=== PATIENT | female | born 1925 | race Caucasian/White ===

== ENCOUNTER 2017-01-08 13:27 | Inpatient (IN) | payer MEDICARE, OTHER ==
[~2017-01-08] VITALS: Ht 170.2 cm; Wt 61.6 kg
--- NOTE | ~2017-01-08 | ER ---
PATIENT'S NAME: JAMES MELGAR [facility] AGE: 89 Y [address] ROOM: [place] [address] LOCATION: [facility] [place] ADMIT DATE: 01/08/2017 ER/Outpatient Report DISCHARGE DATE: FAMILY PHYSICIAN: Rebecca Nassar MD ATTENDING PHYSICIAN: Joshua Pedersen Admission date and time documented on the medical record. I saw the patient at 1340 hours. CHIEF COMPLAINT: Altered mental status. HISTORY OF PRESENT ILLNESS: This patient is an 89-year-old female, who was here in the emergency room about three to four hours ago after being found in her room on the floor. It appeared that she had sat on the edge of bed and slipped off onto the floor. She had blankets around her. She was awake, alert, and responsive. She was brought to the emergency room for evaluation because of the fall. I did a chest x-ray that showed no acute infiltrate or changes along with a pelvis x- ray that showed no fracture or dislocation. She also had a CBC and a CMS that were normal. I did discharge the patient from the emergency department and sent her back to [facility]. She got back there and ended up urinating in her closet. They felt that she needed higher level of care other than assisted living that she need to go to the usp facility but they did not have a bed, so they sent her back to the emergency department here at [facility] by ambulance. Here in the emergency department, I did a CT scan of the head and neck, which showed no acute brain bleed, midline shift, mass effect, or skull fracture. Her cervical spine showed degenerative changes but no acute fracture or subluxation. Urinalysis was clear. HOME MEDICATIONS: See attached medication list. ALLERGIES: BACTRIM, CEPHALEXIN. SOCIAL HISTORY: Nonsmoker and nondrinker. SIGNIFICANT PAST MEDICAL HISTORY: Atherosclerotic ischemic heart disease with coronary artery disease, syncope, degenerative joint disease, degenerative osteoarthritis, colon cancer, sick sinus syndrome, bradycardia, hypertension. OPERATIONS: PATIENT'S NAME: JAMES MELGAR [facility] AGE: 89 Y [address] ROOM: [place] [address] LOCATION: [facility] [place]MIT DATE: 01/08/2017 ER/Outpatient Report DISCHARGE DATE: FAMILY PHYSICIAN: Rebecca Nassar MD ATTENDING PHYSICIAN: Joshua Pedersen Colonoscopy, colon resection, cholecystectomy, bilateral total hip arthroplasty, bilateral total knee arthroplasty, pacemaker placement. REVIEW OF SYSTEMS: All systems reviewed by me are negative with exception of those discussed in the history of present illness. PHYSICAL EXAMINATION: VITAL SIGNS: Temperature 97.4 tympanic, pulse 60 regular, respirations 16, blood pressure 116/57, O2 saturation on room air is 97%. HEAD: Normocephalic. No abrasion, contusion, laceration, swelling of the scalp or face. EYES: Extraocular muscles intact. PERRL. EARS, NOSE, THROAT: Clear. Mucous membranes moist. Teeth and jaw intact. NECK: No nuchal rigidity. No thyromegaly or cervical adenopathy. No tenderness. Full range of motion. SPINE: Nontender. No deformity. LUNGS: Clear. No rales, rhonchi, or wheezes. HEART: Regular. Pulses are palpable. ABDOMEN: Flat, soft, nondistended, nontender. Good bowel tones. No organomegaly or abnormal mass palpable. EXTREMITIES: Moves all 4 extremities. No peripheral edema, cyanosis, or deformity. NEUROVASCULAR: Intact. The patient does have some dementia, is disoriented as far as time and place. SKIN: Clear. No skin eruptions or rash. DIAGNOSTIC DATA: As stated earlier, CT scan of the head and cervical spine were obtained as well as urinalysis. I did note further blood studies. IMPRESSION: 1. Altered mental status. 2. Fall. 3. History of atherosclerotic ischemic heart disease with coronary artery disease, sick sinus syndrome, bradycardia with pacemaker placement. 4. History of colon cancer status post colon resection. 5. Hypertension. 6. Degenerative joint disease with degenerative osteoarthritis. 7. Total bilateral hip and knees. PLAN: I did discuss the patient with Dr. Pedersen, hospitalist. We will admit the patient to med/surg. IV was started. Normal saline 75 mL an hour. The patient will need placement in usp facility. Family is on their way PATIENT'S NAME: JAMES MELGAR [facility] AGE: 89 Y [address] ROOM: [place] [address] LOCATION: [facility] [place] ADMIT DATE: 01/08/2017 ER/Outpatient Report DISCHARGE DATE: FAMILY PHYSICIAN: Rebecca Nassar MD ATTENDING PHYSICIAN: Joshua Pedersen and is probably about 4-6 hours away from [place], [place]. MD SINDY CALLAWAY/modl /[id number] d: 01/08/172001 t: 01/09/17 0610, OUTPATIENT REPORT
--- NOTE | ~2017-01-08 | CON ---
PATIENT'S NAME: JAMES MELGAR [facility] AGE: 89 Y [address] ROOM: [place] [address] [address]ATION: [facility] [place] ADMIT DATE: 01/08/2017 Consultation DISCHARGE DATE: FAMILY PHYSICIAN: Rebecca Nassar MD ATTENDING PHYSICIAN: Joshua Pedersen DATE OF CONSULTATION: 01/10/2017 REFERRING PHYSICIAN: Joshua Pedersen MD REASON FOR CONSULTATION: Left lower extremity dermatitis. HISTORY OF PRESENT ILLNESS: This is a pleasant 89-year-old female patient who was admitted to [facility] with acute encephalopathy. She has a significant history of dementia, coronary artery disease, syncope, hypertension, colon cancer, bradycardia, and edema. The patient currently resides at [facility]. Prior to admission, she sustained a fall. She was taken to the emergency room for further evaluation. The patient was sent back to [place], however, when she got back she was found to be urinating in her closet. She was subsequently admitted to [facility] for further evaluation. CT of head and neck is stable. Cervical spine showed degenerative changes. Urinalysis was negative. No fractures noted. The patient is unable to recall the events. She thinks she was lying for significant amount of time. Surprisingly, she is denying pain. She has lower leg dermatitis, unsure how long she has had it. She does apply Eucerin cream to her left lower extremity. She also admits to wearing compression stockings at [place]. She is denying chest pain or shortness of breath. She reports a fair oral intake. She is pleasant, but slightly forgetful. PAST MEDICAL HISTORY: 1. Atherosclerotic ischemic heart disease with coronary artery disease. 2. Sick sinus syndrome. 3. Bradycardia. 4. Syncope. 5. Essential hypertension. 6. History of colon cancer. 7. Osteoarthritis. 8. Lower leg edema. PAST SURGICAL HISTORY: 1. Cholecystectomy. 2. Bilateral hip and knee replacements. PATIENT'S NAME: JAMES MELGAR [facility] AGE: 89 Y [address] ROOM: [place] [address] [address]ATION: [facility] [place] ADMIT DATE: 01/08/2017 Consultation DISCHARGE DATE: FAMILY PHYSICIAN: Rebecca Nassar MD ATTENDING PHYSICIAN: Joshua Pedersen FAMILY HISTORY: Per previous records, patient's mother suffered from a stroke. SOCIAL HISTORY: The patient lives at [place]. She denies tobacco or alcohol use. ALLERGIES: SULFA, CEPHALEXIN, AND BACTRIM. CURRENT MEDICATIONS: Please refer to medication administration record. REVIEW OF SYSTEMS: All are negative except as mentioned above in the HPI. PHYSICAL EXAMINATION: VITAL SIGNS: Temperature 97.5, pulse 65, respirations 13, blood pressure 184/85, and pulse oximetry 96% on room air. Height 5 feet 7 inches and weight 61.6 kg. GENERAL: The patient is alert and oriented to self and place. Unsure of the time. Pleasant. In no acute distress. HEENT: Head; normocephalic and atraumatic. Oral mucosa intact. NEUROLOGIC: Grossly nonfocal. EXTREMITIES: +2 pedal pulses. No edema. Bulging varicosities, left worse than the right. Medial malleolar area has hemosiderin staining. SKIN: Breasts and groin folds intact. Red abrasion noted to left lumbar back, tender to touch. Right upper buttock scattered purple ecchymosis. Gluteal crease ulcer measures 0.3 cm width x 1.0 cm length x 0.1 cm depth. Wound bed is moist pink. Periwound intact. Scant serous exudate. Left sacrum is dark purple with surrounding yellow discoloration. No induration, fluctuance, or tenderness noted. Lower leg medial dermatitis, scales were gently removed with a washcloth. No open ulcers noted. Heels intact. Blanchable redness to great toes. LABORATORY DATA: White blood cell count 4.1, hemoglobin 12.2, hematocrit 38.1, and platelets 104,000. Sodium 144, potassium 3.4, chloride 109, bicarbonate 26, BUN 13, creatinine 0.5, glucose 88, and albumin 3.0. ASSESSMENT AND PLAN: Again, this is a pleasant 89-year-old female patient who was admitted to [facility] with acute encephalopathy post fall. 1. Lower leg dermatitis with hemosiderin staining. Most likely secondary to venous insufficiency, however no history documented. No active venous PATIENT'S NAME: JAMES MELGAR [facility] AGE: 89 Y [address] ROOM: [place] [address] LOCATION: [facility] [place] ADMIT DATE: 01/08/2017 Consultation DISCHARGE DATE: FAMILY PHYSICIAN: Rebecca Nassar MD ATTENDING PHYSICIAN: Joshua Pedersen ulcers noted. No pruritus or pain complaints. We will use emollient therapy with [place] moisture barrier, apply b.i.d. to lower legs. Discussed the importance of elevation. The patient is to transition back to her gradient stockings on dismissal. 2. Gluteal crease dermal ulcer. Most likely secondary to incontinence that she suffered during her fall. Instructed nursing to apply [place] moisture barrier cream to site t.i.d. and p.r.n. incontinence. Pressure redistribution measures were discussed. Nursing is to turn patient in bed q.2 hours side to side. 3. Left sacrum ecchymosis secondary to blunt trauma from fall. Due to location and discoloration, cannot rule out a deep tissue injury. However at this time, ecchymosis appears more probable. No induration or fluctuance noted. Area is not hot to touch. Pressure redistribution measures will be initiated. We will continue to follow. I would like to thank Dr. Pedersen for this consultation. AMPARO GARRETT APRN FOR MD JEN GALVAN/joshl /[id number] d: 01/10/17 1454 t: 01/17/17 1200, CONSULTATION REPORT
--- NOTE | ~2017-01-08 | DS ---
PATIENT'S NAME: JAMES MELGAR [facility] AGE: 89 Y [address] ROOM: [id number] [place] [id number] [place] [facility] [place]: 01/08/2017 Discharge Summary DISCHARGE DATE: 01/11/2017 FAMILY PHYSICIAN: Rebecca Nassar MD ATTENDING PHYSICIAN: Joshua Pedersen PRIMARY DIAGNOSES: 1. Acute encephalopathy. 2. Ataxia. CHRONIC DIAGNOSES: Include coronary artery disease, essential hypertension, venous insufficiency, sick sinus syndrome, history of colon cancer, Thrombocytopenia. Platelet count upon discharge was 104. Hypokalemia, potassium 4.0 stable. Upon discharge, it was 4.0, creatinine was 0.6, stable throughout the hospital stay. Microbiology: None was indicated. PROCEDURE: None was indicated on this patient. LABORATORY DATA: On admission, cardiac enzymes x3 sets, less than 0.040. WBC was stable throughout the hospital stay. Upon discharge, it was 4.1, H and H upon discharge was 12.2 with 38.1. It was stable throughout the hospital stay. RADIOLOGY: Chest x-ray, no acute process. X-ray of the pelvis, intact bilateral hip replacement with no evidence of fracture or dislocation. CT head without contrast, periventricular small vessel ischemic change with no evidence of acute intracranial injury. CT cervical, multilevel degenerative changes with no displaced fracture or dislocation. CT of the head with contrast, periventricular small vessel ischemic change with no evidence of acute ischemia. CT of lumbar, no evidence of acute fracture, mild T12 compression fracture, chronic in appearance. Signs of osteoporosis, central canal stenosis at L2-L3, L3-L4, and L4-L5. Echocardiogram is reported as EF of 55% to 60%, diastolic grade 1 dysfunction. HOSPITAL COURSE: For history of present illness, please take a look at the H and P which was done by Dr. Pdeersen. The patient was admitted to medical- surgical unit, and was observed, and her acute encephalopathy improved with her hospital stay. She did also get a Cardiology consult given the history of syncope, however, after the patient was evaluated by Cardiology with an echocardiogram which essentially was within a normal limit except for the diastolic dysfunction. Cardiology decided to sign off as there was nothing acute or active for them to do. By the second day of the hospital stay, the patient had returned to her baseline mental status, and we started discussion PATIENT'S NAME: JAMES MELGAR [facility] AGE: 89 Y [address] ROOM: [id number] [place] [address] [place] [facility] [place]: 01/08/2017 Discharge Summary DISCHARGE DATE: 01/11/2017 FAMILY PHYSICIAN: Rebecca Nassar MD ATTENDING PHYSICIAN: Joshua Pedersen with the son as the patient was no longer a good candidate to return to an assisted living facility and that she would be an appropriate candidate for [facility]. So the process was begun by the home care scheduler team and on the day of discharge, the patient was accepted at [facility] and she was discharged to [facility]. Vital signs were stable upon discharge. MEDICATIONS ON DISCHARGE: Includes Norvasc 2.5 mg p.o. daily, ampicillin 250 mg p.o. at bedtime, vitamin C 500 mg p.o. daily, aspirin 81 mg p.o. daily, Lipitor 80 mg p.o. daily, hydrochlorothiazide 12.5 mg p.o. daily, lisinopril 10 mg p.o. daily, multivitamin one tablet p.o. daily, Tylenol 650 mg p.o. q.6 hours p.r.n., clindamycin 600 mg p.o. x1 p.r.n. for dental procedure, calcium carbonate with vitamin D 1 tablet p.o. daily. MD SUNNY RODRIGUES/lissa /[id number] d: 01/12/17 0111 t: 01/27/17 1641, DISCHARGE SUMMARY
--- NOTE | ~2017-01-08 | HP ---
PATIENT'S NAME: JAMES MELGAR [facility] AGE: 89 Y [address] ROOM: [address] [place], [place] [address] LOCATION: [facility] [place] ADMIT DATE: 01/08/2017 History & Physical DISCHARGE DATE: FAMILY PHYSICIAN: Rebecca Nassar MD ATTENDING PHYSICIAN: Joshua Pedersen DATE OF SERVICE: CHIEF COMPLAINT: Acute encephalopathy. HISTORY OF PRESENTING ILLNESS: This 89-year-old white female with previous history of mild dementia, ischemic heart disease, and essential hypertension, who was brought to [facility] Emergency Department twice today after being found down in her room. Apparently, she had a fall yesterday. She cannot relate any specific inciting factors and cannot remember why she fell. There was no apparent injury. Today, she was found down in her room, poorly responsive by assisted living staff. They brought her to the emergency department for definitive evaluation and management. After a thorough evaluation, no significant abnormalities were found. She was felt to be essentially at her baseline and released to go home. Later today, she was found in her room, in the closet, where she had an episode of urinary incontinence. She was brought back to the emergency department once again for definitive evaluation and consideration for placement. On my evaluation, she indicates that she "does not know why she is here." She states she "feels okay." She denies headache pain. She denies dizziness. No neck pain. No chest pain, shortness of breath, or abdominal pain. She thinks that she last ate breakfast, but cannot remember what she had. She has not noticed any problems with chewing or swallowing. She cannot remember the last time she stooled or voided. She denies noticing any urinary complaints. No numbness or tingling in her extremities or any other associated physical or constitutional concerns. ALLERGIES: SULFA, CEPHALEXIN, AND TRIMETHOPRIM. ILLNESSES: 1. Dementia, vascular type, without agitation. 2. Sick sinus syndrome status post pacemaker implant. 3. Coronary artery disease. 4. Ischemic cardiomyopathy. 5. Essential hypertension. PATIENT'S NAME: JAMES MELGAR [facility] AGE: 89 Y [address] ROOM: [address] [place], [place] [address] LOCATION: [facility] [place] ADMIT DATE: 01/08/2017 History & Physical DISCHARGE DATE: FAMILY PHYSICIAN: Rebecca Nassar MD ATTENDING PHYSICIAN: Joshua Pedersen 6. Osteoarthritis, generalized. CURRENT MEDICATIONS: 1. Acetaminophen 650 mg p.o. q.6 hours p.r.n. 2. Amlodipine 2.5 mg p.o. daily. 3. Amoxicillin 250 mg p.o. q.h.s. 4. Vitamin C 500 mg p.o. daily. 5. Aspirin 81 mg p.o. daily. 6. Atorvastatin 80 mg p.o. daily. 7. Calcium with vitamin D 600 mg one tablet p.o. daily. 8. Clindamycin cap 600 mg p.o. prior to dental appointments. 9. Hydrochlorothiazide 12.5 mg p.o. daily. 10. Lisinopril 10 mg p.o. daily. 11. Multivitamin daily. FAMILY HISTORY: Significant for stroke in her mother, who at the age of 87. Father in his 90s. She had a sister with pancreatic cancer. SOCIAL HISTORY: She is and lives at [place]. She is a lifelong nonsmoker. There is no significant history of alcohol use. REVIEW OF SYSTEMS: As per HPI. All other organ systems reviewed and are negative. OBJECTIVE: VITAL SIGNS: Temperature 97.4, pulse 60, respirations 16, blood pressure 116/57, and O2 saturation 97% on room air. GENERAL: She is very pleasant, cooperative, lying in the bed, in no acute distress. She is oriented x1 only. SKIN: Supple, pink, warm, and dry. No obvious rashes. HEENT: Otherwise, normocephalic. Sclerae nonicteric. Pupils equal, round, and reactive to light and accommodation. Extraocular movements appear intact. Nasal turbinates normal in appearance. Oropharynx clear. Mucous membranes are pink and moist. NECK: Supple. No masses or adenopathy. No thyromegaly. No JVD. No carotid bruits are heard. CHEST: Chest wall is symmetrical. HEART: Regular with grade 1 to 2/6 systolic ejection murmur. LUNGS: Diminished at the bases. No crackles or wheezes are heard. ABDOMEN: Soft. Nontender. Bowel sounds present. No masses or hepatosplenomegaly. AND RECTAL: Not done. EXTREMITIES: Display trace pitting edema. No cyanosis. There is a scaly PATIENT'S NAME: JAMES MELGAR [facility] AGE: 89 Y [address] ROOM: [id number] [place] [address] LOCATION: [facility] [place] ADMIT DATE: 01/08/2017 History & Physical DISCHARGE DATE: FAMILY PHYSICIAN: Rebecca Nassar MD ATTENDING PHYSICIAN: Joshua Pedersen rash over the left medial leg consistent with a nonspecific dermatitis. There is no ulceration or bleeding noted. NEUROLOGIC: Cranial nerves II through XII appear grossly intact. Sensation appears normal. Strength is 4/5 bilaterally in upper and lower extremities. DTRs are 0 to 1+ and roughly symmetrical. Gait is not observed. LABORATORY AND X-RAY DATA: CT scan of the head shows senescent changes, no acute intracranial abnormalities. CT scan of the C-spine is negative for fracture, but does demonstrate degenerative changes. X-ray of the pelvis is negative for any fracture. Chest x-ray does not show any acute cardiopulmonary abnormalities. CBC showed a white blood cell count of 5.8, hemoglobin of 13.2, hematocrit of 41.3, and platelets of 119. Chemistries reveal a BUN and creatinine of 16 and 0.6 respectively, sodium and potassium of 144 and 3.5, chloride and CO2 are 107 and 30, glucose was 104, AST and ALT 55 and 44 respectively, and bilirubin is 0.9. Urinalysis was unremarkable. ASSESSMENT AND PLAN: 1. Acute encephalopathy, etiology unknown, differential diagnosis remains relatively broad. She has had an extensive workup to this point, which was unyielding. Consider cerebrovascular accident, although she does not have any focalizing signs. Unfortunately, we were unable to get MRI because of her pacemaker device. We will admit and follow serially. Continue with aspirin and statin therapy and follow serially. I suspect she has had progression of her underlying dementia and it was suggested that she may not be able to return to the assisted living facility because of her poor functional status. We will place her on observation, provide some supportive cares and restorative cares and clinical monitoring. We will request Care Management to look at placement options for her. 2. Urinary incontinence. It is unclear if this was an episode of functional incontinence or some other event. There was not an actual witnessed fall and seizure seems unlikely. There is no evidence for urinary tract infection. We will provide some clinical monitoring restorative cares as above and additional evaluation if necessary. 3. Coronary artery disease, clinically stable and otherwise asymptomatic. We will trend her cardiac enzymes. 4. Essential hypertension, adequately controlled. Continue her home medication regimen and monitor the trend. We will make adjustments as necessary. 5. Osteoarthritis, generalized. Symptomatic measures. No nonsteroidal antiinflammatory drugs. 6. Hyperlipidemia. Plan to continue the statin therapy. 7. Deep venous thrombosis prophylaxis. We will use low-dose Lovenox while she is inpatient. PATIENT'S NAME: JAMES MELGAR [facility] AGE: 89 Y [address] ROOM: [place] [address] LOCATION: [facility] [place] ADMIT DATE: 01/08/2017 History & Physical DISCHARGE DATE: FAMILY PHYSICIAN: Rebecca Nassar MD ATTENDING PHYSICIAN: Joshua Pedersen MD ANTONIO HIGGINS/joshl /[id number] D: 211 T: 650 HISTORY & PHYSICAL
--- NOTE | ~2017-01-08 | CON ---
PATIENT'S NAME: JAMES MELGAR [facility] AGE: 89 Y [address] [place] [facility] [place] [address] LOCATION: [facility] [place] ADMIT DATE: 01/08/2017 Consultation DISCHARGE DATE: FAMILY PHYSICIAN: Rebecca Nassar MD ATTENDING PHYSICIAN: Joshua Pedersen DATE OF CONSULTATION: 01/10/2017 REASON FOR CARDIOLOGY CONSULT: Coronary artery disease with a history of stenting. HISTORY OF PRESENT ILLNESS: This is an 89-year-old female familiar to [facility]. She was last seen by Dr. Allan in October of 2016. She has a previous history of coronary artery disease with a stent placement to her mid LAD as well as a stent placement to her distal RCA in 2014. She also has a [employer] dual-chamber permanent pacemaker also placed in 2014. She has no complaints of shortness of breath, angina, palpitations, nausea, or vomiting. She does present to the hospital with complaints of confusion as well as two separate falls over the weekend. Due to the fall, she does have complaints of hip and buttocks pain, but x-ray of her pelvis is without fracture. She is currently resting comfortably in her bed and is unsure of any recent details related to her previous admission when questioned why she is in the hospital. Her son is present at the bedside and does assist with question and answer. From chart review, the patient has had some increasing confusion at her assisted living facility to the point that she did urinate in her closet and once again did have 2 separate falls and was evaluated in the emergency department after each. PAST MEDICAL HISTORY: 1. Coronary artery disease. 2. Sinus bradycardia with syncope. 3. Hypertension. 4. Dementia. 5. Osteoarthritis. SURGICAL HISTORY: 1. Coronary artery stenting to her mid LAD and distal RCA in January of 2015. 2. Dual-chamber [employer] permanent pacemaker implantation in January of 2015 for sinus bradycardia with syncope. 3. Cholecystectomy. 4. Right and left total knee replacement. 5. Bilateral hip replacement. FAMILY HISTORY: PATIENT'S NAME: JAMES MELGAR [facility] AGE: 89 Y [address] ROOM: [place] [address] LOCATION: [facility] [place] ADMIT DATE: 01/08/2017 Consultation DISCHARGE DATE: FAMILY PHYSICIAN: Rebecca Nassar MD ATTENDING PHYSICIAN: Joshua Pedersen The patient's mother had a history of stroke. She does have a brother with a history of bradycardia and subsequent pacemaker. SOCIAL HISTORY: The patient denies ever using tobacco. She also denies alcohol or illicit drug use. CURRENT MEDICATIONS: 1. Aspirin 81 mg p.o. daily. 2. Hydrochlorothiazide 12.5 mg p.o. daily. 3. Lipitor 80 mg p.o. daily. 4. Norvasc 2.5 mg p.o. daily. 5. Os-Amadeo plus D 500 mg p.o. daily. 6. Principen 250 mg p.o. daily in the evening. 7. Prinivil 10 mg p.o. daily. 8. Multivitamin 1 tablet p.o. daily. 9. Vitamin C 500 mg p.o. daily. 10. Lovenox 40 mg subcutaneously daily. MEDICATION ALLERGIES: 1. Sulfa causing hives. 2. Cephalexin causing hives. 3. Bactrim causing hives. REVIEW OF SYSTEMS: Pertinent positive review of systems listed in the HPI. All other review of systems evaluated and negative. DIAGNOSTICS: CMS evaluation shows a sodium of 144, potassium 3.4, BUN of 13, creatinine 0.5, and a glucose of 88. Cardiac enzyme trend shows a CPK of 595, then 473, then 374; CK-MB of 12.5, then 7.8, then 5.7; and troponin I of less than 0.04 x3 values. PHYSICAL EXAMINATION: VITAL SIGNS: Temperature 97.6, pulse 61, respirations 14, blood pressure 133/89, O2 saturation 97% on room air. The patient weighs 61.6 kilograms. SKIN: Armour, warm, and dry. EYES: Sclerae clear. No xanthelasmas. ENT: Oral mucosa is pink and moist. No jugular venous distention. No carotid bruits. CHEST: Respirations are even and unlabored. Lung sounds are clear to bilateral upper lobes. They are diminished to bilateral lower lobes. HEART: Irregularly irregular rate and rhythm. Normal S1, S2. No murmurs, rubs, or gallops. PATIENT'S NAME: JAMES MELGAR [facility] AGE: 89 Y [address] ROOM: [place] [address] LOCATION: [facility] [place] ADMIT DATE: 01/08/2017 Consultation DISCHARGE DATE: FAMILY PHYSICIAN: Rebecca Nassar MD ATTENDING PHYSICIAN: Joshua Pedersen ABDOMEN: Soft and nontender. MUSCULOSKELETAL: Equal muscle strength to upper and lower extremities bilaterally against resistance. EXTREMITIES: Peripheral pulses palpable. No clubbing or cyanosis noted. Does have trace lower extremity edema present as well as stasis dermatitis and varicose veins. NEUROLOGIC: Disoriented to time. PSYCH: Mood and affect are appropriate. IMPRESSION AND PLAN: Per Dr. Allan. 1. Coronary artery disease with a history of stenting. She has no complaints of angina, and cardiac enzymes are currently negative for acute changes of ischemia. We will check an EKG to fully evaluate ST changes. We will also continue her aspirin and statin. 2. Acute encephalopathy, currently under the care of the hospitalist for a workup. No current signs of infection, and her head CT was without any acute changes. 3. Essential hypertension which is well controlled with Norvasc and her JONO inhibitor. We will get an echocardiogram to fully evaluate ejection fraction as well as look for wall motion and valvular abnormalities. We will continue to monitor, evaluate, and treat as appropriate. Thank you for this consult. Thank you for allowing [facility] to interact in the care of this patient. SANTO RUEDA APRN FOR MD DENNISE DENNIS/lissa /[id number] d: 01/11/17 0251 t: 01/14/17 0839, CONSULTATION REPORT
--- NOTE | ~2017-01-08 | ECHO ---
Transthoracic Echocardiography Report (TTE) Demographics Patient Name JAMES MELGAR Date of Study 01/10/2017 Patient Number [id number] Visit Number [id number] Date of 1925 Room Number G3219 Accession Number [id number] Gender Female Age 89 year(s) Referring Arturo Barrow Trucking Supervisor Adilene Reed [facility] Physician Physician Interpreting Sanjana Baeza Supervisor Photostat Physician A MD Supervising Ordering Physician MD/SHERIN Nurse Stress Supervisor [employer] Conclusions Summary Technically difficult exam. The estimated left ventricular ejection fraction is 55-60%. Diastolic assessment reveals Grade I diastolic dysfunction. Mild-moderate mitral regurgitation by color Doppler. Mild tricuspid regurgitation by color Doppler. There is mild pulmonary hypertension. The pulmonary pressure (RVSP) is 39 mmHg. Procedure Type of Study TTE procedure:2D Echocardiogram. Procedure Date Date: 01/10/2017 Start: 04:55 PM Study Location: Inpatient Portable Technical Quality: Fair Indications:Acute coronary syndrome. Appropriate Use Criteria: 9 Patient Status: Routine HR: 62 bpm BP: 135/82 mmHg Allergies - Sulfa. - Cephalosporines. - Other:(sulfamethozole, trimethoprim, cephalexin). M-Mode/2D Measurements LV Diastolic Dimension: 4.02 cm LV Systolic Dimension: 2.83 cm LV Septum Diastolic: 1.03 cm LV PW Diastolic: 1.18 cm AO Root Dimension: 1.8 cm Cardiac Output: 4.2 l/min LA Dimension: 2.9 cm EF Estimated: 55 % LVOT: 1.9 cm LVOT VTI: 23.9 cm LV Stroke volume: 67.73 ml Doppler Measurements AV Peak Velocity: 1.63 m/s MV Peak E-Wave: 0.95 m/s AV Peak Gradient: 10.63 mmHg MV Peak A-Wave: 1.18 m/s AV Mean Gradient: 6 mmHg MV E/A Ratio: 0.81 LVOT Peak Velocity: 1.17 m/s MV P1/2t: 52 msec TR Gradient:29.81 mmHg PV Peak Velocity: 0.85 m/s Estimated RAP:10 mmHg PV Peak Gradient: 2.9 mmHg Estimated RVSP: 40 mmHg Estimated PASP: 39.81 mmHg E' Septal Velocity: 0.06 m/s A' Septal Velocity: 0.09 m/s E' Lateral Velocity: 0.09 m/s A' Lateral Velocity: 0.11 m/s Findings Left Ventricle Diastolic assessment reveals Grade I diastolic dysfunction. Right Ventricle Normal right ventricle structure and function. Left Atrium Normal left atrial size. Right Atrium Normal right atrial size. Mitral Valve Mild-moderate mitral regurgitation by color Doppler. Moderate mitral annular calcification. Aortic Valve The aortic valve is moderately sclerotic. Tricuspid Valve Mild tricuspid regurgitation by color Doppler. There is mild pulmonary hypertension. The pulmonary pressure (RVSP) is 39 mmHg. Pulmonic Valve Normal pulmonic valve structure and function. Pericardial Effusion No evidence of pericardial effusion. Pleural Effusion No evidence of pleural effusion. Signature dtt: La Nena Allan dtd: 01/10/17 7208 Physician Self Edit
[~2017-01-08 13:27] MED LIST changes: -CIPRO250 MG PO; -CLEOCIN150 MG PO; -DULCOLAX10 MG R; -PRINCIPEN 250250 MG PO; -TYLENOL325 MG PO
[2017-01-08 14:01] LABS: BILIRUBIN URINE NEGATIVE (NEGATIVE); BLOOD URINE NEGATIVE /UL (NEGATIVE); COLOR URINE YELLOW (YELLOW); GLUCOSE URINE NEGATIVE (NEGATIVE); KETONE URINE 5 mg/dL (NEGATIVE); LEUKOCYTES URINE NEGATIVE /UL (NEGATIVE); NITRITE URINE NEGATIVE (NEGATIVE); PROTEIN URINE NEGATIVE (NEGATIVE); TURBIDITY URINE CLEAR (CLEAR); UROBILINOGEN URINE NORMAL (NORMAL)
[2017-01-08] MEDS ORDERED: PRINCIPEN 250250 MG PO (15:51)
[2017-01-08] MEDS ORDERED: TYLENOL325 MG PO (15:52)
[2017-01-08] MEDS ORDERED: CLEOCIN150 MG PO (15:55)
--- NOTE | 2017-01-08 17:54 | NUR ---
Patient is an 89 year old female who was admitted for altered mental status. She is a resident at [facility]. She was found on the floor laying next to her bed this morning where she was believed to be there all night. She was brought in by the ambulance and had a complete workup. She was then sent back to [place] due to no complications. She was then found in her closet where she fell and had urinated and was confused. Does have some dementia. Is oriented to self only, not place and time. Has trouble expressing her thoughts sometime. Skin issues present, noted. Hx of chronic UTI's, colon cancer?, dementia, SSS, and has a PACER. Ultra high fall risk. Bed alarm on at all times. Needs a WOC consult, order in. IV to the R)AC, fluids infusing for 1 liter. Cooperative with the admission. Son is traveling from [facility] to see his mother. Will be here around 1930
[2017-01-08 19:02] LABS: CPK 595 IU/L (21-215)
[2017-01-09 00:39] LABS: CPK 473 IU/L (21-215)
--- NOTE | 2017-01-09 04:05 | NUR ---
Shift Summary: Patient disoriented to Month/year. Has disorganized speech. Midsentence she says unrelated things and appears to have trouble finding her words. She has a flat affect. Is a two assist to transfer to [facility]. Tends to lean back. She has not been impulsive. Poor appetite for supper. Takes her pills whole one at a time. Complained to pain to her right leg. It does rotate in. Has butt crease open skin area. Brusies to back and across sacral area. Multiple scattered bruises to arms/legs. Her son came in last night from [place]. Patient from an assisted living facility. Will need placement in a [facility]. Son is here to help with that. Gave Tylenol at 2135 for leg pain.
[2017-01-09 06:14] LABS: BASOPHIL % 0.5 %; EOSINOPHIL # 0.1 K/uL (0.0-0.5); EOSINOPHIL % 2.7 %; HEMATOCRIT 38.1 % (30.0-46.0); HEMOGLOBIN 12.2 g/dL (10.0-15.0); IMMATURE GRANULOCYTE % 0.2 %; LYMPHOCYTE # 0.9 K/uL (0.8-4.0); LYMPHOCYTE % 22.4 %; MCH 28.2 pg (27.0-34.0); MCV 88.2 fl (83.0-98.0); MONOCYTE # 0.4 K/uL (0.0-1.0); MONOCYTE % 8.8 %; MPV 10.8 fl (9.4-12.4); NEUTROPHIL # (ANC) 2.7 K/uL (1.8-7.8); NEUTROPHIL % 65.4 %; NRBC % 0 /100WBC (0-0.00); PLATELET COUNT 104 K/uL (150-450); RBC 4.32 M/uL (3.00-5.00); RDW-CV 15.1 % (11.9-14.6); WBC 4.1 K/uL (4.0-11.0)
[2017-01-09 06:32] LABS: CPK 374 IU/L (21-215)
[2017-01-09 06:33] LABS: ANION GAP 12.4 (10.0-19.0); BLOOD UREA NITROGEN 13 mg/dL (6-24); CALCIUM 8.5 mg/dL (8.5-10.5); CHLORIDE 109 mMol/L (96-110); CO2 26 mMol/L (22-32); CREATININE 0.5 mg/dL (0.5-1.1); ESTIMATED GFR (MDRD EQUATION) > 60; PHOSPHORUS 2.5 mg/dL (2.5-4.9); POTASSIUM 3.4 mMol/L (3.7-5.1); SODIUM 144 mMol/L (135-145)
--- NOTE | 2017-01-09 15:46 | NUR ---
Significant event: Ambulated with 2 assist to BR. Up in chair today. Denies pain today. Speech is slow but appropriate. Was confused to place this am and time. This afternoon knew where she was. Had company today. Cooperative with cares.
--- NOTE | 2017-01-10 03:13 | NUR ---
Shift Summary: Patient can ambulate with 1 assist/walker. Does need verbal cues such as reminder to stand up straight, when to move hands from bed/chair to walker and visa versa. Patient tends to lean to the left. Is oriented to all but . Thinks it is February. C/O pain to sacral area. Has large bruise and lisa swollen area to sacrum. Is tolerating regular diet well. Voiding without difficulty. Takes her pills whole, one at a time.
--- NOTE | 2017-01-10 10:30 | NUR ---
Introduced self to patients son Leno, patient sleeping. We discussed patients observation status and what that meant for SNF placement. He voiced understanding that patient will be self pay at SNF. First choice [facility] as she was there in the past. 2nd choice is [facility]. 1110 Left a message on [facility] admission phone about referral. 1130 Stephanie called back, faxed referral. 1325 Sunshine from [facility] called and they will accept. Pickup time 1130. Discharge plans communicated to Zakiya Santamaria, Dr Tsai, charge nurse Sarah and patient/son. Packet started and ID screen placed inside. Orders on the chart.
[2017-01-10 13:37] LABS: BLOOD UREA NITROGEN 15 mg/dL (6-24); CHLORIDE 110 mMol/L (96-110); CO2 26 mMol/L (22-32); CREATININE 0.6 mg/dL (0.5-1.1); ESTIMATED GFR (MDRD EQUATION) > 60; MAGNESIUM 2.2 mg/dL (1.8-2.6); SODIUM 144 mMol/L (135-145)
--- NOTE | 2017-01-10 18:43 | NUR ---
Significant Event: Alert, oriented to person and place. Makes confused statements. Bowel sounds hypoactive. 400 urine + 2 incont vds. Off floor to ECHO and CT scan. VSS, afebrile, room air. Son present at bedside. Pleasant & cooperative with cares. Follow up: LUCY Tuesday to [facility] at 1145 ?
--- NOTE | 2017-01-11 03:43 | NUR ---
Shift Summary: Patient dioriented to month. Had hard time with remembering the year and place. Has flat affect and disorganized speech. Needs verbal cues with ambulating. Is a 1-2 assist/walker. Is continent most of the time. Wears a brief. Has scaley dry skin patches to bilateral inner lower legs. Bruises to arms and back. Plans to go to [facility] today at 1130.
--- NOTE | 2017-01-11 09:40 | NUR ---
Faxed orders to [facility]. 1100 spoke to patients nurse Khadra and patient ready to go just needs line pulled. Gave her nurse to nurse phone number. Checked it charge nurse, finishing up packet but thought 1130 would still work. Called [facility] and spoke to nurse Angel. Their van is very busy but was planning to be at the hospital around 1130.
--- NOTE | 2017-01-11 10:47 | NUR ---
Significant Event: Pt denies pain. disoriented at times, cooperative with cares. Bed alarm on for safety. 1-2 assist with ambulation. takes pills whole in applesauce. VS stable. Family at bedside. To dc to long term at 1130. Follow up:
== END 2017-01-11 12:20 | DRG 71 ==
LOC: GACC 13:27 → GMSU 14:39
PROVIDERS: Emergency Medicine; Hospitalist; ADMIT Family Medicine
DX: G93.40 Encephalopathy, unspecified (principal); I50.32 Chronic diastolic (congestive) heart failure; D69.6 Thrombocytopenia, unspecified; I10 Essential (primary) hypertension; R32 Unspecified urinary incontinence; I25.10 Atherosclerotic heart disease of native coronary artery without angina pectoris; M15.9 Polyosteoarthritis, unspecified; E78.5 Hyperlipidemia, unspecified; R55 Syncope and collapse; Z85.038 Personal history of other malignant neoplasm of large intestine; Z96.653 Presence of artificial knee joint, bilateral; Z96.643 Presence of artificial hip joint, bilateral; R27.0 Ataxia, unspecified; I87.2 Venous insufficiency (chronic) (peripheral); M81.0 Age-related osteoporosis without current pathological fracture; S30.0XXA Contusion of lower back and pelvis, initial encounter; W18.30XA Fall on same level, unspecified, initial encounter
CPT/HCPCS: J1650; J7030

== ENCOUNTER → 2017-01-08 | Outpatient (CLI) | payer MEDICARE, OTHER ==
[~2017-01-08] MED LIST: ASCORBIC ACID500 MG PO; ASPIR 8181 MG PO; CALCIUM600 MG PO; CIPRO250 MG PO; CIPRO500 MG PO; CLEOCIN150 MG PO; DULCOLAX10 MG R; FISH OIL1000 MG PO; HYDROCHLOROTH12.5 MG PO; LIPITOR80 MG PO; MILK OF MA400 MG/5 M PO; MOBIC7.5 MG; MULTIVITAMINS1 EAC1 PO; NITROSTAT0.4 MG SL; NORCO 5-325 MG1 TAB PO; NORVASC2.5 MG PO; PLAVIX75 MG PO; PRINCIPEN 250250 MG PO; PRINIVIL OR ZES10 MG PO; TRIMETHOPRIM100 MG PO; TYLENOL325 MG PO; VITAMIN D1000 UNI1 PO
== END | disposition disaster alternative care site (69) ==
LOC: GAMB 08:30
DX: R53.1 Weakness (principal); R41.0 Disorientation, unspecified; R29.6 Repeated falls; W01.0XXA Fall on same level from slipping, tripping and stumbling without subsequent striking against object, initial encounter
CPT/HCPCS: A0425; A0429

== ENCOUNTER → 2017-01-08 | Outpatient (CLI) | payer MEDICARE, OTHER | END | disposition disaster alternative care site (69) | LOC: GAMB 12:30 | DX: R53.1 Weakness (principal); M54.9 Dorsalgia, unspecified | CPT/HCPCS: A0425; A0429 ==

== ENCOUNTER 2017-03-02 05:43 | Emergency (ER) | payer MEDICARE, OTHER ==
--- NOTE | ~2017-03-02 | ER ---
PATIENT'S NAME: JAMES MELGAR [facility] AGE: 89 Y [address] ROOM: [place] [address] LOCATION: [facility] ADMIT DATE: 03/02/2017 ER/Outpatient Report DISCHARGE DATE: 03/02/2017 FAMILY PHYSICIAN: Rebecca Nassar MD ATTENDING PHYSICIAN: Kwan Kaur Time of arrival: 0543 hours. Time of Evaluation: 0543 hours. CHIEF COMPLAINT: Fall. HISTORY OF PRESENT ILLNESS: The patient is an 89-year-old female who presents to the emergency department today after a fall. It occurred about 30-40 minutes prior to arrival. The patient was apparently walking to get coffee. The patient does have a history of dementia in the past. She complains of hip pain. She denies any fevers or chills. No nausea or vomiting. No diarrhea or constipation. She reports she does not really hurt anywhere at the present time. The patient does have some blood noted in the back of her head. PAST MEDICAL HISTORY: Colon cancer, dementia, heart disease, hypertension, and osteoarthritis. PAST SURGICAL HISTORY: Pacemaker. SOCIAL HISTORY: The patient denies any tobacco, alcohol, or illicit drug use. ALLERGIES: KEFLEX AND BACTRIM. MEDICATIONS: Please see list. PRIMARY CARE DOCTOR: Dr. Nassar. REVIEW OF SYSTEMS: All systems are reviewed by myself, are negative with the exception of those discussed in HPI and past medical history. PHYSICAL EXAMINATION: VITAL SIGNS: Weight 62.9 kg. Blood pressure 144/65, pulse 78, respiratory PATIENT'S NAME: JAMES MELGAR [facility] AGE: 89 Y [address] ROOM: [place] [address] LOCATION: [facility] ADMIT DATE: 03/02/2017 ER/Outpatient Report DISCHARGE DATE: 03/02/2017 FAMILY PHYSICIAN: Rebecca Nassar MD ATTENDING PHYSICIAN: Kwan Kaur rate 16, temperature 97.2, oxygen saturation 97% on room air. GENERAL: The patient is an 89-year-old female, appears stated age, in no acute distress at this time. HEENT: Normocephalic, does have evidence of abrasion to the left posterior aspect of her scalp. Pupils are equal, round, and reactive to light and accommodation. Extraocular motions are intact. Nares are patent bilaterally. TMs are clear. Oropharynx is clear. NECK: Supple. No nuchal rigidity. No step-offs or deformities. CARDIOVASCULAR: Regular rate and rhythm. LUNGS: Clear to auscultation bilaterally. No wheezes, rales, or rhonchi. ABDOMEN: Soft, nontender, and nondistended. No rebound, rigidity, or guarding. MUSCULOSKELETAL: The patient does hold her right leg in internal rotation; however, she is able to do range of motion without pain. SKIN: Warm and dry. No other rashes or lesions noted except for the abrasion noted on the posterior aspect of her scalp. LABORATORY DATA AND X-RAYS: CT scan of the brain is obtained. It is read by Radiology as well as C-spine shows no acute fracture. CBC is unremarkable. CMP is unremarkable. Prealbumin is normal. Coags are normal. X-ray of the right hip and pelvis are obtained, is interpreted by myself, there is no evidence of fracture or dislocation. IMPRESSION: 1. Mechanical fall. 2. Dementia. 3. Initial visit. EMERGENCY DEPARTMENT COURSE: The patient was brought back to the examination room. Seen and evaluated by myself. IV was established. Laboratory analysis and imaging are obtained as described above. The patient is given 25 mcg of fentanyl IV. X-rays are obtained. I reviewed those x-rays. I see no evidence of fracture or dislocation. The patient has ambulated. She does have a shuffling gait which after discussion with the [facility] is normal for her. She is able to bear weight. The rest of the workup is obtained and is unremarkable. The patient denies any pain at this time. I do feel she is safe to return back to [facility]. I have discussed results with the patient. She is agreeable with plan without further questions at this time. DISPOSITION: The patient is discharged back to [facility] in stable condition. PATIENT'S NAME: JAMES MELGAR [facility] AGE: 89 Y [address] ROOM: [place], [place] [address] LOCATION: [facility] ADMIT DATE: 03/02/2017 ER/Outpatient Report DISCHARGE DATE: 03/02/2017 FAMILY PHYSICIAN: Rebecca Nassar MD ATTENDING PHYSICIAN: Kwan Kaur DO NORMA LANG/lissa /[id number] d: 03/02/17 1254 t: 03/03/17 1428, OUTPATIENT REPORT
[~2017-03-02 05:43] MED LIST changes: -CIPRO250 MG PO; -DULCOLAX10 MG R
[2017-03-02 06:08] LABS: HEMATOCRIT 36.9 % (30.0-46.0); HEMOGLOBIN 11.8 g/dL (10.0-15.0); MCH 28.4 pg (27.0-34.0); MCV 88.7 fl (83.0-98.0); MPV 9.4 fl (9.4-12.4); RBC 4.16 M/uL (3.00-5.00); RDW-CV 15.6 % (11.9-14.6); WBC 6.2 K/uL (4.0-11.0)
[2017-03-02 06:10] LABS: PLATELET COUNT 139 K/uL (150-450)
[2017-03-02 06:22] LABS: INR - (THERAPEUTIC) 1.08 (0.92-1.07); PROTIME 11.3 SECONDS (9.8-11.4); PTT 25 SECONDS (25-32)
[2017-03-02 06:29] LABS: ALBUMIN 3.6 gm/dL (3.5-5.0); ANION GAP 10.4 (10.0-19.0); CALCIUM 9.1 mg/dL (8.5-10.5); CREATININE 0.9 mg/dL (0.5-1.1); PHOSPHORUS 2.9 mg/dL (2.5-4.9); POTASSIUM 3.4 mMol/L (3.7-5.1)
[2017-03-02 06:36] LABS: ABSOLUTE NEUTROPHIL CT (ANC) 5.5 K/uL (1.8-7.8); BANDED NEUTROPHIL # 0.8 K/uL (0.0-0.1); BANDED NEUTROPHILS % 13 %; LYMPHOCYTE # 0.4 K/uL (0.8-4.0); LYMPHOCYTE % 6 %; MONOCYTE # 0.3 K/uL (0.0-1.0); SEGMENTED NEUTROPHIL # 4.7 K/uL (1.8-7.8); SEGMENTED NEUTROPHIL % 76 %
== END 2017-03-02 08:53 | disposition disaster alternative care site (69) ==
LOC: GACC 05:43
PROVIDERS: Emergency Medicine
DX: S00.01XA Abrasion of scalp, initial encounter (principal); F03.90 Unspecified dementia, unspecified severity, without behavioral disturbance, psychotic disturbance, mood disturbance, and anxiety; C18.9 Malignant neoplasm of colon, unspecified; I11.9 Hypertensive heart disease without heart failure; M19.90 Unspecified osteoarthritis, unspecified site; Z88.1 Allergy status to other antibiotic agents; Z79.82 Long term (current) use of aspirin; Z79.2 Long term (current) use of antibiotics; Z66 Do not resuscitate; Z96.89 Presence of other specified functional implants; W18.30XA Fall on same level, unspecified, initial encounter
CPT/HCPCS: J3010

== ENCOUNTER → 2017-03-02 | Outpatient (CLI) | payer MEDICARE, OTHER ==
[~2017-03-02] MED LIST changes: +CIPRO250 MG PO; +CLEOCIN150 MG PO; +DULCOLAX10 MG R; +PRINCIPEN 250250 MG PO; +TYLENOL325 MG PO
== END | disposition disaster alternative care site (69) ==
LOC: GAMB 05:15
DX: S79.911A Unspecified injury of right hip, initial encounter (principal); M25.551 Pain in right hip; S01.81XA Laceration without foreign body of other part of head, initial encounter; R51 Headache; R53.1 Weakness; W19.XXXA Unspecified fall, initial encounter
CPT/HCPCS: A0425; A0429

== ENCOUNTER 2017-03-04 09:11 | Inpatient (IN) | payer MEDICARE, OTHER ==
[~2017-03-04] VITALS: Ht 170.2 cm; Wt 61.5 kg
--- NOTE | ~2017-03-04 | ER ---
PATIENT'S NAME: JAMES MELGAR [facility] AGE: 89 Y [address] ROOM: [address] [place], [place] [address] LOCATION: [facility] [place] ADMIT DATE: 03/04/2017 ER/Outpatient Report DISCHARGE DATE: FAMILY PHYSICIAN: Rebecca Nassar MD ATTENDING PHYSICIAN: USMAN BROCK Time of Arrival: 0910 hours. Time of Evaluation: 0910 hours. CHIEF COMPLAINT: Fall. HISTORY OF PRESENT ILLNESS: The patient is an 89-year-old female, who presents to the emergency department today with a chief complaint of fall. The patient was seen and evaluated by myself earlier this week after a fall and right hip pain. She has the same symptoms, apparently, staff at the assisted living went and checked on her, gave her medicines; and then about 20 minutes later went back, she was on the ground, was not able to get up. We have talked with a friend, who went to a doctor's appointment with Dr. Nassar yesterday, she does report that she has progressively gotten weaker and having difficulties with ambulation. The patient does verbally state that she feels more weak than normal. She does have dementia. The patient denies any current pain at this time. Denies any fevers or chills. No nausea or vomiting. No diarrhea or constipation. No chest pain. No shortness of breath. The patient cannot tell me about the fall. PAST MEDICAL HISTORY: Colon cancer, dementia, heart disease, hypertension, and osteoarthritis. PAST SURGICAL HISTORY: Pacemaker. SOCIAL HISTORY: The patient denies any tobacco, alcohol, or illicit drug use. ALLERGIES: KEFLEX AND BACTRIM. MEDICATIONS: Please see list. PRIMARY CARE DOCTOR: Rebecca Nassar M.D. PATIENT'S NAME: JAMES MELGAR [facility] AGE: 89 Y [address] ROOM: [address] [place], [place] [address] LOCATION: [facility] [place] ADMIT DATE: 03/04/2017 ER/Outpatient Report DISCHARGE DATE: FAMILY PHYSICIAN: Rebecca Nassar MD ATTENDING PHYSICIAN: USMAN BROCK REVIEW OF SYSTEMS: All systems are reviewed by myself and are negative with the exception of those discussed in the HPI and past medical history. PHYSICAL EXAMINATION: VITAL SIGNS: Weight 62.7 kg, blood pressure 130/62, pulse 71, respiratory rate 20, temperature 95.3, and oxygen saturation 100% on room air. GENERAL: The patient is an 89-year-old female, appears as stated age. She is pleasantly demented. Oriented to person and place. HEENT: Head normocephalic and atraumatic. Pupils are equal, round, and reactive to light. Extraocular muscles are intact. Nares are patent bilaterally. TMs are clear. Oropharynx is clear. NECK: Supple. There is no nuchal rigidity. CARDIOVASCULAR: Regular rate and rhythm. No murmurs, rubs, or gallops. LUNGS: Clear to auscultation bilaterally. No wheezes, rales, or rhonchi. ABDOMEN: Soft. Nontender. Nondistended. No rebound, rigidity, or guarding. MUSCULOSKELETAL: The patient moves all 4 extremities. She does rotate internally the right hip. SKIN: Warm and dry. LABORATORY DATA AND X-RAYS: EKG was obtained, interpreted by myself at 0939 hours, shows sinus rhythm with a rate of 68, normal axis, NE interval 251, otherwise normal interval. No ST elevation, ST depression, or T-wave inversions. CBC is unremarkable except for a platelet of 148. Coags are normal. CMP is unremarkable except for potassium of 3.3. Prealbumin is 18. Urinalysis shows 25 leukocyte esterase, 15 protein and ketones, 10 blood, otherwise negative. CT scan of the brain is obtained, I have discussed results with the radiologist, shows no acute process. Chest x-ray shows no acute process. Hip x-ray and pelvis are negative for acute fractures. IMPRESSION: 1. Generalized weakness. 2. Immobility. 3. Dementia. 4. Initial visit. EMERGENCY DEPARTMENT COURSE: The patient was brought back to the examination room. Seen and evaluated by myself. IV was established. Laboratory analysis and imaging are obtained as described above. The patient was given 25 mcg of fentanyl IV. Urinalysis obtained. CT imaging obtained. The results are essentially unremarkable. We have attempted to get the patient up and ambulate. She does require 2 person assist to even stand up. She is requiring assistance to ambulate. She is able to weight bear on the hip and pelvis. She does report she feels very PATIENT'S NAME: JAMES MELGAR [facility] AGE: 89 Y [address] ROOM: [address] [address] LOCATION: [facility] [place] ADMIT DATE: 03/04/2017 ER/Outpatient Report DISCHARGE DATE: FAMILY PHYSICIAN: Rebecca Nassar MD ATTENDING PHYSICIAN: USMAN BROCK. She certainly is much weaker than when I saw her 4 days ago. With her inability to appropriately take care of herself, I do not feel she is safe to return to Assisted Living. She will likely need some strengthening or even possible further advanced group home type care. I have discussed this with the patient. We have contacted the patient's friend, who does help assist her to her doctor's appointments. I have contacted Dr. Nassar and discussed the case with her. I have contacted Dr. Brock and discussed the case with the hospitalist. She does agree to accept the patient for further evaluation, treatment, and management. DISPOSITION: The patient was admitted under the care of the Hospitalist Service and Dr. Brock in stable condition. DO NORMA LANG/modl /[id number] d: 03/04/172212 t: 03/06/17 0708, OUTPATIENT REPORT
--- NOTE | ~2017-03-04 | HP ---
PATIENT'S NAME: ROSANA HASSAN [facility] AGE: 89 Y [address] ROOM: [address] [place], [place] [address] LOCATION: [facility] ADMIT DATE: 03/04/2017 History & Physical DISCHARGE DATE: FAMILY PHYSICIAN: Rebecca Nassar MD ATTENDING PHYSICIAN: USMAN BARDALES DATE OF SERVICE: 03/04/2017 CHIEF COMPLAINT: Recurrent fall. HISTORY OF PRESENT ILLNESS: Ms. Rosana Hassan is an 89-year-old female who resides at the [facility] and no close family is nearby. She presented to the emergency room on 03/02/2017, status post a fall. I have been able to reach Flakita Nicole who is a friend and has been helping to care for her and help her give her medicines over the past couple of years. She reports that the patient has been declining progressively since 2015. She was hospitalized here at [facility] in early January 2016 with acute encephalopathy and found to have no remarkable findings. After she left here, Flakita says that she went to rehab at [facility], but then was able to return to assisted living at [facility]. However, Flakita reports that she has had progressive deterioration in the past few weeks. I was called earlier by the emergency room physician who said that he had seen her in the ER on the after a fall. She was seen by her PCP yesterday with some changes made to her medications. Today, she again fell and was evaluated in the emergency room. There were no acute fractures on imaging of both hips, where she has prosthesis. A CT of the head was nonrevealing for any acute changes. She does have significant aging changes and atrophy. Dr. Kaur was unable to send her home because when he stood her up, she was unable to ambulate, this may be generalized weakness, may be problems she appears to have had prosthesis in both knees as well. She is admitted for further monitoring, observation, and consideration of admission to intermediate. I have called the son's number twice and her brother Abhinav's number twice and left a message with one of them and Flakita says she will try to get the son to call me back. At this point, she is admitted to the Med/Surg Unit. PAST MEDICAL HISTORY: 1. Dementia, vascular, without agitation. 2. Sick sinus syndrome, status post pacemaker implant. PATIENT'S NAME: ROSANA HASSAN [facility] AGE: 89 Y [address] ROOM: [address] [address] LOCATION: [facility] ADMIT DATE: 03/04/2017 History & Physical DISCHARGE DATE: FAMILY PHYSICIAN: Rebecca Nassar MD ATTENDING PHYSICIAN: USMAN BARDALES 3. Coronary artery disease. 4. Ischemic cardiomyopathy. 5. Essential hypertension. 6. Osteoarthritis. 7. Recurrent UTIs on daily prophylaxis with ampicillin 250 mg daily. PAST SURGICAL HISTORY: 1. Bilateral hip replacements. 2. Pacemaker placement. 3. Bilateral knee surgeries. ALLERGIES: SULFA, CEPHALEXIN, AND TRIMETHOPRIM. MEDICATIONS: 1. Ampicillin 250 mg p.o. q.h.s. 2. Aspirin 81 mg p.o. daily. 3. Calcium carbonate 1 daily. 4. Norvasc 2.5 mg p.o. daily was discontinued yesterday. 5. Vitamin C 1 daily. 6. Cipro 250 mg was started 02/28/2017 b.i.d. for 5 days. 7. Dulcolax p.r.n. SOCIAL HISTORY: She is and has been living in [place] for 14 years, lifelong nonsmoker and no alcohol intake at this time. FAMILY HISTORY: Stroke in her mother who at age 87, father in his 90s, and her sister had pancreatic cancer. REVIEW OF SYSTEMS: Impossible because she is confused, she does know where she is, she really cannot carry on a conversation. PHYSICAL EXAMINATION: VITAL SIGNS: Temperature 98.6, pulse 71, respirations 20, oxygen saturation when she arrived in the emergency room on room air was 100%. Her blood pressure is 108/56. GENERAL: This is a petite elderly female in no acute distress. She is awake and alert. She is not oriented beyond knowing that she is in [place], she could not tell me the name of the city, she did not understand she was in the hospital, but she is pleasant. HEENT: Normocephalic, atraumatic. Her pupils are equal and round and reactive to light. The sclerae are anicteric. Palpebral conjunctivae are PATIENT'S NAME: HASSAN, ROSANA M [facility] AGE: 89 Y [address] ROOM: [place] [address] LOCATION: [facility] ADMIT DATE: 03/04/2017 History & Physical DISCHARGE DATE: FAMILY PHYSICIAN: Rebecca Nassar MD ATTENDING PHYSICIAN: USMAN BARDALES pink without exudate. Oropharynx is slightly dry. She does have her natural teeth, which is in relatively good repair. NECK: Supple without lymphadenopathy. She does have some temporal wasting. LUNGS: Clear to auscultation bilaterally. CARDIOVASCULAR: Regular rate and rhythm without murmur, rub, or gallop. ABDOMEN: Flat, soft, nontender, nondistended. EXTREMITIES: No cyanosis, clubbing, or edema. She does follow directions and grasp with her hands, but she does not move her legs. There is no lower extremity edema. Unable to test gait as above she was unable to stand or even take a step in the ER. LABORATORY DATA: White blood cell count 5.4, hemoglobin 11.9, hematocrit 37.6, and platelets 148. Sodium 144, potassium 3.3, chloride 108, CO2 28, BUN 23, creatinine 0.7, glucose 110, calcium 9.0, phosphorus 2.8, and albumin 3.6. Urinalysis showed a specific gravity 1.020, pH 5, some leukocyte esterase, however, 0-2 white blood cells, no bacteria. Her prealbumin is slightly below normal at 18. RADIOGRAPHIC STUDIES: CT of the head showed [id number]-lbrlzy cerebral atrophy. She has bilateral hip prosthesis normally in place. A chest x-ray was also normal. EKG shows MN interval at 251. ASSESSMENT AND PLAN: 1. Elderly female with vascular dementia, which seems to be progressing, she is unable to ambulate today, she is awake and alert, but not able to tell me where she is or carry on a meaningful conversation. I think that this just means a progression of her underlying dementia and I do not see any acute signs of infection; however, we will send her urine for culture, which I do not think will yield much since she has been on Cipro, we will obtain blood cultures, and monitor her. 2. Coronary artery disease, this appears to be stable, she on statin and we will continue that with aspirin. 3. Essential hypertension, her Norvasc has been discontinued, her blood pressure is low normal, and we will monitor that closely. 4. Deep vein prophylaxis with sequential compression devices. 5. Disposition. She may need to be admitted to the intermediate. Since I started this dictation, I have been able to reach her son who called me back and he will come down from [place] over the weekend and hopefully within next 24 hours and make some decisions regarding her disposition. We will admit her to observation for now. PATIENT'S NAME: ROSANA HASSAN [facility] AGE: 89 Y [address] ROOM: [place] [address] LOCATION: [facility] ADMIT DATE: 03/04/2017 History & Physical DISCHARGE DATE: FAMILY PHYSICIAN: Rebecca Nassar MD ATTENDING PHYSICIAN: USMAN BARDALES USMAN BARDALES MD LM/lissa /[id number] D: [id number] T: [id number] HISTORY & PHYSICAL
--- NOTE | ~2017-03-04 | DS ---
PATIENT'S NAME: JAMES MELGAR [facility] AGE: 89 Y [address] ROOM: [place] [address] LOCATION: [facility] [place] ADMIT DATE: 03/07/2017 Discharge Summary DISCHARGE DATE: 03/10/2017 FAMILY PHYSICIAN: Rebecca Nassar MD ATTENDING PHYSICIAN: Amparo Brock FINAL DIAGNOSES: 1. Progressive dementia. 2. Gait instability. 3. Essential hypertension. 4. Coronary artery disease. 5. Acute encephalopathy, now resolved. 6. Sick sinus syndrome, status post permanent pacemaker. 7. History of colon cancer. 8. Osteoarthritis. CONSULTANTS ON THE CASE: None. PROCEDURES: None. HOSPITAL COURSE: Please see details of admission H and P by Dr. Brock. Briefly, the patient was admitted due to ataxia. The patient has progressive dementia, and has physical and cognitive decline. The patient was brought to the hospital for an acute encephalopathy. However, we were unable to link the encephalopathy to an acute infection. The patient was cultured both blood and urine. DVT prophylaxis with SCDs was utilized throughout her stay. Speech Therapy, Occupational Therapy, and Physical Therapy were utilized throughout her stay. The patient was cooperative. Her appetite did increase during her time spent at [facility]. She was able to show progressive ambulation with therapies' assistance. We did monitor her nutrition closely and added supplements to her routine diet. Because of the level of severe debility, the patient was changed to inpatient status on the . On the , after progress she had made with all therapies involved, it was felt that the patient could safely be discharged to [facility] under the care of Dr. Nassar. DIAGNOSTICS: One view of the chest was normal. Her pelvis and right hip x- rays were within normal limits. Bilateral hip prosthesis are in regular position. CT of the head without contrast was stable without acute findings. On admission, sodium was 144, potassium was 3.3, chloride was 108, CO2 was 28, glucose was 110, BUN was 23, creatinine was 0.7, and pre-albumin was 18. White blood cell count of 5.4, hemoglobin of 11.9, hematocrit of 37.6, and platelets of 148. Urinalysis was negative for white blood cells and bacteria. Blood cultures were negative at 5 days. Urine culture was also negative at 2 days. PATIENT'S NAME: JAMES MELGAR [facility] AGE: 89 Y [address] ROOM: [place] [address] LOCATION: [facility] [place] ADMIT DATE: 03/07/2017 Discharge Summary DISCHARGE DATE: 03/10/2017 FAMILY PHYSICIAN: Reebcca Nassar MD ATTENDING PHYSICIAN: Amparo Brock DISCHARGE INSTRUCTIONS: The patient was discharged to [facility] under the care of Dr. Nassar. Diet is regular. Weightbearing status is as tolerated with fall precautions. We will continue occupational, physical, and speech therapy. We will utilize oxygen as needed to keep sats greater than 90%. The patient's rehab potential is fair and discharge potential is poor. The patient and family are aware of her condition and diagnoses on discharge. DISCHARGE MEDICATIONS: 1. Ampicillin 250 mg p.o. at bedtime. 2. Ascorbic acid 500 mg daily. 3. Aspirin 81 mg daily. 4. Lipitor 80 mg daily. 5. Calcium carbonate 600 mg daily. 6. Lisinopril 10 mg daily, hold if systolic blood pressure is less than 120. 7. Multivitamin one tablet daily. 8. Tylenol 650 mg every four hours as needed. 9. Dulcolax suppository 10 mg rectally every 24 hours as needed. 10. Milk of magnesia 30 mL every 24 hours as needed. 11. Cleocin 600 mg p.o. x1 prior to dentist appointments. I do appreciate participating in this patient's care. Thank you very much for the ability to serve them while hospitalized at [facility]. Time spent coordinating details of discharge was less than 30 minutes, of which was spent coordinating with care management, completion of medication reconciliation, and education to the patient and family on the above-mentioned diagnoses. NABEEL HUANG FOR SHWETHA WOODSON MD ROSSANA/modl /[id number] d: 03/11/17 0503 t: 03/17/17 1820, DISCHARGE SUMMARY
[~2017-03-04 09:11] MED LIST changes: -CIPRO250 MG PO; -DULCOLAX10 MG R
[2017-03-04 09:43] LABS: HEMATOCRIT 37.6 % (30.0-46.0); HEMOGLOBIN 11.9 g/dL (10.0-15.0); MCH 27.9 pg (27.0-34.0); MCHC 31.6 gm/dL (32.0-36.5); MCV 88.3 fl (83.0-98.0); MPV 9.7 fl (9.4-12.4); PLATELET COUNT 148 K/uL (150-450); RBC 4.26 M/uL (3.00-5.00); RDW-CV 15.8 % (11.9-14.6); WBC 5.4 K/uL (4.0-11.0)
[2017-03-04 09:51] LABS: INR - (THERAPEUTIC) 1.07 (0.92-1.07); PROTIME 11.2 SECONDS (9.8-11.4); PTT 25 SECONDS (25-32)
[2017-03-04 09:57] LABS: ALBUMIN 3.6 gm/dL (3.5-5.0); ANION GAP 11.3 (10.0-19.0); BLOOD UREA NITROGEN 23 mg/dL (6-24); CHLORIDE 108 mMol/L (96-110); CO2 28 mMol/L (22-32); CREATININE 0.7 mg/dL (0.5-1.1); ESTIMATED GFR (MDRD EQUATION) > 60; PHOSPHORUS 2.8 mg/dL (2.5-4.9); POTASSIUM 3.3 mMol/L (3.7-5.1); SODIUM 144 mMol/L (135-145)
[2017-03-04 10:09] LABS: ABSOLUTE NEUTROPHIL CT (ANC) 4.6 K/uL (1.8-7.8); BANDED NEUTROPHIL # 0.5 K/uL (0.0-0.1); BANDED NEUTROPHILS % 9 %; LYMPHOCYTE # 0.5 K/uL (0.8-4.0); LYMPHOCYTE % 9 %; MONOCYTE # 0.3 K/uL (0.0-1.0); SEGMENTED NEUTROPHIL # 4.1 K/uL (1.8-7.8); SEGMENTED NEUTROPHIL % 76 %
[2017-03-04 10:58] LABS: BILIRUBIN URINE NEGATIVE (NEGATIVE); BLOOD URINE 10 /UL (NEGATIVE); COLOR URINE YELLOW (YELLOW); GLUCOSE URINE NEGATIVE (NEGATIVE); KETONE URINE 15 mg/dL (NEGATIVE); LEUKOCYTES URINE 25 /UL (NEGATIVE); NITRITE URINE NEGATIVE (NEGATIVE); PROTEIN URINE 15 mg/dL (NEGATIVE); TURBIDITY URINE CLEAR (CLEAR); UROBILINOGEN URINE 1 mg/dL (NORMAL)
[2017-03-04 11:11] LABS: BACTERIA URINE NEGATIVE (NEGATIVE); EPITHELIAL URINE RARE #/HPF (NEGATIVE); RBC URINE RARE #/HPF (NEGATIVE); WBC URINE 0-2 #/HPF (NEGATIVE)
--- NOTE | 2017-03-04 15:21 | NUR ---
RECEIVED REQUEST FROM DR. BARDALES TO ASSES PATIENT'S SITUATION SHE HAS BEEN [facility]ING [facility] AND CAN NOT GET [facility] OF ANY OF THEM. I NOTIFIED THE ANCA SPOKE TO ARON THE NURSE AND SHE REPORTS SHAVON RAMIREZ LIVES ON THE [facility] AND WAS JUST RECENTLY PLACED AT THE [facility] AFTER BEING IN A SNF ([facility]). SHE ALSO REPORTS THAT JAMES HAS BEEN TREATED FOR UTI WITH ANTIBIOTICS SINCE TUESDAY OF THIS WEEK. SHE REPORTS THAT THEY HAVE NOTED INCREASE CONFUSION AND PATIENT HAS BEEN FALLING. SHE USUALLY HAS A STEADY GAIT AND AMBULATES IN THE HALLS. SHE DOES HAVE CONFUSION WHICH IS HER BASE LINE. I EXPLAINED TO HER THAT PATIENT WILL PROBABLY BE ADMITTED OBSERVATION STATUS. AND THAT HER TIME UP WOULD BE ON TUESDAY. JONATHAN REPORTS THAT THEY WILL NEED TO EVALUATE PATIENT PRIOR TO HER GOING BACK AND THAT THEY WILL NOT BE ALBE TO EVALUATE HER UNTIL TUESDAY. UPDATED DR. BARDALES
[2017-03-04] MEDS ORDERED: CIPRO250 MG PO (16:08)
[2017-03-04] MEDS ORDERED: DULCOLAX10 MG R (16:10)
[2017-03-04] MEDS ORDERED: MILK OF MA400 MG/5 M PO (16:11)
--- NOTE | 2017-03-04 16:50 | NUR ---
RECEIVED CALL FROM SY'S SON KENN INTRODUCED CM AND OUR ROLE. KENN ANTICIPATES THAT HIS MOM WILL NOT BE ABLE TO GO BACK TO [facility] AND THAT SHE MAY NEED TO GO BACK [facility] SHE WAS RECENTLY THERE. KENN WILL BE HERE TOMORROW AND I WILL MEET WITH HIM ON TUESDAY AND WILL SEE HOW PATIENT IS DOING AND MAKE ARRANGEMENTS FOR WHAT EVER OPTION IS BEST FOR HER. I EXPLAINED TO HIM THAT JAMES IS AN OBSERVATION STATUS AT THIS TIME AND WHAT THE MEDICARE REGULATIONS ARE REGARDING THIS AND HE VERBALIZES UNDERSTANDING. GÉNESIS COMPLETED FOR THIS AND PLACED ON THE CHART AND PLACED COPPY IN PATIENT'S ROOM.
--- NOTE | 2017-03-04 21:21 | NUR ---
89 Y/O FEMALE ADMITTED FOR WEAKNESS, INABILITY TO AMBULATE AND PROGRESSIVE DEMENTIA. PT IS ALERT & ORIENTED TO PERSON, OTHERWISE IS UNABLE TO ANSWER MANY QUESTIONS I HAVE. WHEN IN ROOM IT TOOK 2 PEOPLE TO GET PT UP WITH A GAITBELT, STAND & PIVOT HER. PT UNABLE TO BEAR HER FULL WEIGHT ON HER OWN AND UNABLE TO WALK WELL HAVING DIFFICULTY SITTING UP. PT IS TENDING TO LEAN TO HER LEFT SIDE, DIFFICULTY WITH WEAKNESS AV ON HER LEFT SIDE, ALSO NOTED TO BE DROOLING FROM THE LEFT SIDE OF HER MOUTH WHEN UP ON THE COMMODE. PT IS PLEASANT & COOPERATIVE. ALLERGIES - SULFA, BACTRIM, CEPHALEXIN, TRIMETHORPIN MEDICAL HISTORY - DEMENTIA (VASCULAR TYPE W/O AGGITATION), OSTEOARTHRITIS, SSS STATUS POST PACEMAKER INPLANT, CARDIAC STENTS, PACEMAKER, CAD, ISCHEMIC CARDIOMYOPATHY, ESSENTIAL HYPERTENSION, URINARY INCONTNENCE & FREQ UTI'S. HX OF COLON CANCER WITH A COLON RESECTION, THROMBOCYTOPENIA. NON SMOKER & NON DRINKER. REPORT GIVEN TO PT PRIMARY CARE NURSE TIFFANIE DIRECTOR OF SEARCH ENGINE MARKETING EDUCATION NOT DONE WITH PT SHE IS UNABLE TO REMEMBER THIS INFORMATION. I DID HOWEVER GIVE PT HER CALL LIGHT & REVIEW HOW TO PUSH THE NURSE CALL LIGHT TWICE WITH HER.
--- NOTE | 2017-03-05 04:28 | NUR ---
Patient is alert and oriented to self only, very confused and forgetful at times, was very restless and agitated at begining of shift but has rested well tonight, was up to the commode with three assist, very weak with transfers and has trouble following directions, VSS, son Leno is on his way from [place] there is an evelope taped to the whiteboard that is supposed to be given to him, code status also needs to be discussed with him, also considering need for skilled placement
--- NOTE | 2017-03-05 14:59 | NUR ---
Significant event: Was confused this am to person, place and time. After she was awake for about 30 minutes she was oriented to person and birthday and place. With prompting was able to remember the day. About midmorning she became confused again and agitated with staff, able to calm her and reassure her. 3 people to transfer this am and then used sit to stand and she tolerated that well. Voiding good. Appetite good and drinking fair. Fluids encouraged. Son has not arrived yet.
--- NOTE | 2017-03-06 04:19 | NUR ---
Significant Event: PATIENT IS ALERT AND CONFUSED TO PLACE TIME AND SITUATION. SHE WILL RESPOND TO QUESTIONS BUT IS DIFFICULT TO UNDERSTAND AND DOES NOT RESPOND APPROPERATELY. USED A SIT TO STAND TO COMMODE AND CHAIR. PREVIOUS SHIFT STATED CAN BE MOVED WITH 2 ASSIST AT TIMES. VSS WNL, IV T R OUTER FA SL, CRUSH PILLS AND GIVE IN INSURE OR APPLE SAUCE WILL PUSH CALL LIGHT FREQUENTLY BUT HAS NO RECOLLECTION TO WHY SHE PUSHED IN. SEVERE BRUSING TO BUTTDOCK AND LOWER BACK FROM PREVIOUS FALL. FULL CODE Follow up:
--- NOTE | 2017-03-06 16:34 | NUR ---
Significant event: Up to commode and to chair with 2 assist, walker and gait belt. Appetite good. Son at bedside most of day. Patient has been oriented to person and place today disoriented at times to time.
--- NOTE | 2017-03-07 04:45 | NUR ---
Significant Event: Patient alert and oriented to person and time upon 1st assessment, and alert and oriented X3 upon 2nd assessment. Heavy 2 person assist with walker and gait belt. Mostly pivoted from chair to bed. Has trouble following verbal cues. Reposition often. Used bedpan this shift because pt stated she was too nervous to get out of bed when she was tired. Bed alarm on, no attmepts to get out of bed. IV to L) forearm. SL. Takes pills whole in applesauce. Looking for skilled placement? Son wants to talk to care management today. Fell on 03/04. Bruising on buttocks and back. Follow up: Monitor skin
--- NOTE | 2017-03-07 11:55 | NUR ---
MEET WITH PATIENT AND HER SON KENN AT THE BEDSIDE. KENN FEELS THAT JAMES NEEDS TO GO TO SNF AND HE I AWARE THAT THIS WILL BE OUT OF POCKET. PATIENT IS IN AGREEMENT TO GOING TO A SNF AND SHE WOULD LIKE FOR ME TO CHECK AT [facility] OR [facility]. SHE HAS BEEN AT [facility] IN THE PAST AND SHE DOES NOT WANT TO GO [facility] THERE IF POSSIBLE. KENN IS CONSIDERING MOVING JAMES CLOSER TO HIM ONCE SHE IS ABLE TO AMBULATE [facility], HE LIVES IN [place] AND IT IS A [address] HE HAS SOME PLACES CLOSER TO HIM THAT HE WILL CONSIDER MOVING JAMES TO BUT WANTS TO WAIT TILL SHE IS STRONGER. I NOTIFIED [facility] SPOKE TO HORACIO SHE DOES NOT THINK THAT THEY CAN MEET JAMES'S NEEDS SHE WILL CONTACT ARON AND HAVE HER EVALUATE JAMES. I MADE REFERRAL TO VLADIMIR AT [facility] SHE WOULD LIKE FOR ME TO FAX INFO TO HER SHE WILL REVIEW IT AND GET BACK TO ME. I ATTEMPTED TO MAKE REFERRAL TO [facility] HAD TO LEAVE A MESSAGE FOR EDITA TO CONTACT ME. I RECEIVED CALL FROM ROBERTH AT [facility] AND SHE DOES NOT HAVE ANYONE TO COME AND ASSESS JAMES. SHE FEELS THAT SINCE PATIENT NEEDS TWO ASSIT FOR TRANSFERES THAT IT WOULD BE BETTER IF THEY NOT ACCEPT HER BACK AT THIS TIME. THEY DO NOT HAVE THE STAFF TO MEET HER NEEDS. JAMES AND KENN ARE AWARE OF THIS. WILL AWAIT CALL FROM [facility] AND [facility].
--- NOTE | 2017-03-07 12:38 | NUR ---
RECEIVED CALL FROM VLADIMIR AT [facility] SHE INFORMS ME THAT SHE HAS REVIEWED THE INFO THAT I FAXED AND THE SOONEST THEY CAN ACCEPT PATIENT WILL BE WED. SHE REPORTS THAT THEY WILL COME AND SEE PATIENT WED MORNING AND IF THEY FEEL THEY CAN MEET HER NEEDS THEY WILL TAKE PATIENT WED.
--- NOTE | 2017-03-07 16:30 | NUR ---
Significant Event: Patient alert and oriented to person and place this am, oriented x3 this afternoon. up to commode and chair with 2 assist, use of walker/gait belt, verbal cues with ambulation. bruising to back/buttocks, r) hand. denies pain when asked. bilateral calf pumps on. son at bedside, throughout shift. note to posterior l) thigh abrasions, due to commode. pleasant/cooperative with cares. Follow up:
--- NOTE | 2017-03-08 04:16 | NUR ---
Significant Event: Patient alert and oriented to person. Knows the month, but thinks it is 1918 and then 2908. Very confused statements. Reposition every two hours. VSS and on RA. Heavy 2 person assist with walker and gait belt. Fell on 03/04. Several bruises to back and buttocks and R) hand. Abrasions noted to back of L) thigh from commode. ALoe vesta applied. Plan is to look for skilled placement. Son to visit later today Follow up:
--- NOTE | 2017-03-08 17:51 | NUR ---
Significant Event: UP TO COMMODE AND RECLINER WITH 2 ASSIST. IS HEAVY TRANSFER/LIFT. HAS NUMEROUS BRUSIS ALL OVERR ,,, HAS HX FALLING,HX DEMENTIA..TAKES MEDS WHOLE IN APPLESAUCE..HAS BEEN PLEASENT COOPERATIVE WITH CARE, SON HAS BEEN AT BEDSIDE. PLAN ON TRANSFER TO [facility] TUESDAY... Follow up:
--- NOTE | 2017-03-09 03:04 | NUR ---
Significant Event: PT ORIENTED TO SELF ONLY, REORINETED NEEDED. VSS ON RA, AFEBRILE. IV SALINE LOCK. UP WITH 2-3PA TO BSC, GAITBELT AND WALKER. PT CAN GET ANXIOUS ABOUT TRANSFERS. TOLERATING REGULAR DIET. HAS BEEN CONTINENT ALL SHIFT. TYLENOL AT HS FOR ACHY KNEES. ALARMS ON FOR SAFETY, BUT PT HAS NOT BEEN IMPULSIVE. Follow up: POSSIBLE TRANSFER TO [facility], CONTINUE TO MONITOR
--- NOTE | 2017-03-09 10:30 | NUR ---
RECEIVED CALL FROM VLADIMIR AT [facility]. SHE INFORMS ME THAT THEY HAVE EVALUATED PATIENT AND THEY WILL BE ABLE TO TAKE PATIENT TOMORROW 01/08/17. SHE WILL CONTACT ME TOMORROW MORNING WITH THE TIME.
--- NOTE | 2017-03-09 13:35 | NUR ---
SPOKE TO GILBERT LEES WITH DR. WOODSON UPDATED HER THAT [facility] WILL TAKE JAMES TOMORROW. SPOKE TO JAMES AND HER SON KENN AT THE BEDSIDE UPDATED THEM SHAVON RAMIREZ WILL BE GOING TO [facility] TOMORROW. THEY ARE BOTH HAPPY ABOUT THIS. PATIENT IS IN AGREEMENT TO GOING TO [facility].
--- NOTE | 2017-03-09 14:01 | NUR ---
A-SCREENED D/T LOS PLAN TO D/C TO [facility] TOMORROW, PER CHART REVIEW PROGRESSIVE DEMENTIA; ORIENTED TO SELF ONLY HT: 67 IN. WT: 61.5 KG. BMI: 21.2 03/04 LABS REVIEWED: PREALB 18.0 MEDS: ZESTRIL, MVI, OSCAL, VIT C, PRN BOWEL MEDS, PRINCIPEN DIET RX: CARDIAC/MECHANICAL SOFT. PO INTAKE 25-100%; AVG IS 59%. EST NUTR NEEDS: 4761-6703 KCALS (25-30 KCALS/KG) 49-68 GM PROTEIN (0.8-1.1 GM/KG) 1 ML FLUID/KCAL D-AT NUTRITION RISK W/INADEQUATE ORAL INTAKE AT TIMES R/T DECREASED APPETITE SECONDARY TO ALTERED MENTAL STATUS AEB INTAKE RECORDS I-START ENSURE ENLIVE BID TO PROVIDE ADDITIONAL NUTRIENTS M/E-GOAL: PO INTAKE >/=50% FOR DURATION OF ADMIT 1)F/U PO INTAKE, SUPPLEMENT, AND POC IN 2-4 DAYS 2)ASSIST NEEDED
--- NOTE | 2017-03-09 18:25 | NUR ---
Significant Event: Patient alert and oriented to person but disoriented to time and place. Up to the shower with the wheeled shower chair and 2 assist. Patient incontinent a small amount of urine and a moderate, formed BM in the shower. Takes oral meds whole with applesauce. Tylenol 650 mg given at 1156 for c/o hip discomfort. Up to the commode with 2 assist this afternoon to void and ambulated a short distance with PT this morning. Follow up: Transfer to [facility] tomorrow. Time unknown.
--- NOTE | 2017-03-10 03:32 | NUR ---
SIGNIFICANT EVENT: Pt alert but confused - expressive aphasia increases when tired. Bruises to R) buttock, L) waist. Scabs to bilateral legs. Plan is to go to [facility] today - no specific time yet. Can take pills whole in applesauce. Hypotensive at beginning of shift - 93/42. Improved at 2nd assessment ([id number]) - 152/69. Tylenol x1 with HS meds. Cooperative with cares.
--- NOTE | 2017-03-10 09:00 | NUR ---
RECEIVED REFERRAL THAT PATIENT CAN TRANSFERE TO [facility] TODAY. I SPOKE TO VLADIMIR AT [facility] SHE REPORTS THAT THEY WILL BE HERE AT 1400 TO GET JAMES. SPOKE TO GILBERT LEES AND UPDATED HER. SHE WILL INFORM DR. WOODSON. SPOKE TO MICH THE CHARGE NURSE ON [facility] AND UPDATED HER. SHE WILL INFORM PATIENT AND HER SON KENN WHO IS AT THE BEDSIDE.
--- NOTE | 2017-03-10 13:29 | NUR ---
PT IS ALERT BUT CONFUSED MOST OF TIME. UP TO CHAIR WITH TWO ASSIST/WALKER/GAIT BELT. DENIES PAIN. LUNG SOUNDS CLEAR DIMINISHED IN BASES, 99% ON RA. BLOOD PRESSURE HYPOTENSIVE WITH 96/42 AND 87/45. LOPRESSOR HELD. DR. CURRY. EATING W/O DIFFICULTY. DENIES N/V. LAST BM WAS 7-5-17. VOIDS PER COMMODE. HAS NUMEROUS BRUISES ON HIPS AND BUTTOCKS. TAKES PILLS WITH PUDDING.
--- NOTE | 2017-03-10 14:15 | NUR ---
FAXED DISCHARGE ORDERS TO VLADIMIR AT [facility]. PER HER REQUEST.
--- NOTE | 2017-03-10 15:52 | NUR ---
pt left at 1540 per wheelchair with caregiver
== END 2017-03-10 15:45 | DRG 884 ==
LOC: GACC 09:11 → GMSU 13:51
PROVIDERS: Emergency Medicine; ADMIT Internal Medicine
DX: F01.50 Vascular dementia, unspecified severity, without behavioral disturbance, psychotic disturbance, mood disturbance, and anxiety (principal); G93.40 Encephalopathy, unspecified; I25.10 Atherosclerotic heart disease of native coronary artery without angina pectoris; I10 Essential (primary) hypertension; R26.0 Ataxic gait; I49.5 Sick sinus syndrome; M19.90 Unspecified osteoarthritis, unspecified site; R29.6 Repeated falls; Z79.82 Long term (current) use of aspirin; Z91.81 History of falling; Z85.038 Personal history of other malignant neoplasm of large intestine; Z95.0 Presence of cardiac pacemaker; Z87.440 Personal history of urinary (tract) infections
CPT/HCPCS: G0378; J1650; J3010

== ENCOUNTER → 2017-03-04 | Outpatient (CLI) | payer MEDICARE, OTHER ==
[~2017-03-04] MED LIST changes: +CIPRO250 MG PO; +DULCOLAX10 MG R
== END | disposition disaster alternative care site (69) ==
LOC: GAMB 08:40
DX: R53.1 Weakness (principal); M25.551 Pain in right hip; W19.XXXA Unspecified fall, initial encounter

== ENCOUNTER 2017-03-18 14:47 | Emergency (ER) | payer MEDICARE, OTHER ==
--- NOTE | ~2017-03-18 | ER ---
PATIENT'S NAME: JAMES MELGAR [facility] AGE: 89 Y [address] ROOM: [place] [address] LOCATION: ED ADMIT DATE: 03/18/2017 ER/Outpatient Report DISCHARGE DATE: 03/18/2017 FAMILY PHYSICIAN: Rebecca Nassar MD ATTENDING PHYSICIAN: Jim Dyer Admission date and time documented on the medical record. I saw the patient at 1520 hours. CHIEF COMPLAINT: Dementia, suicidal ideation attempt. HISTORY OF PRESENT ILLNESS: The patient is an 89-year-old female, who was at [facility], was brought to the emergency room by paramedics via ambulance for evaluation. Apparently, the patient placed some exercise bands around her neck trying to strangulate herself. This happened around 1345 hours this afternoon. The patient was sent in for psych evaluation. On arrival, the patient is awake and responsive. No complaints of head pain, eyes, ears, nose, throat, neck, spine, chest, abdominal, or extremity pain. No shortness of breath. No nausea or vomiting. No incontinence of stool or urine. No recent coughs, colds, flus, fever, chills, or sweats. Denies any lightheadedness, dizziness, syncope, or near syncope. No fall or trauma. No shortness of breath. No joint or muscle swelling or redness. No skin eruptions or rash. The patient does have dementia, gait abnormalities, and history of encephalopathy. Psych negative. Endocrine negative. HOME MEDICATIONS: See attached medication list. ALLERGIES: SULFA AND CEPHALEXIN. SOCIAL HISTORY: Nonsmoker. Nondrinker. Lives at [facility]. SIGNIFICANT PAST MEDICAL HISTORY: Atherosclerotic ischemic heart disease with coronary artery disease, syncope, bradycardia, sick sinus syndrome, degenerative joint disease, degenerative osteoarthritis, colon cancer, hypertension, peripheral edema, and dementia. OPERATIONS: Cholecystectomy, colonoscopy, colon resection, bilateral total hip arthroplasty and total knee arthroplasty, pacemaker insertion, and cardiac catheterization with PTCA and stenting. PATIENT'S NAME: JAMES MELGAR [facility] AGE: 89 Y [address] ROOM: [place] [address] LOCATION: ED ADMIT DATE: 03/18/2017 ER/Outpatient Report DISCHARGE DATE: 03/18/2017 FAMILY PHYSICIAN: Rebecca Nassar MD ATTENDING PHYSICIAN: Jim Dyer REVIEW OF SYSTEMS: All systems reviewed by me are negative with the exception of those discussed in the history of present illness. PHYSICAL EXAMINATION: VITAL SIGNS: Temperature 100.2, pulse 64, respirations 16, blood pressure 187/85, and O2 saturation on room air was 97%. HEAD: Normocephalic. No abrasion, contusion, laceration, swelling of the scalp or face. EYES: Extraocular muscles intact. PERRL. EARS, NOSE, AND THROAT: Clear. Mucous membranes moist. NECK: No nuchal rigidity. No thyromegaly or cervical adenopathy. No tenderness. SPINE: Negative. LUNGS: Clear. HEART: Regular. ABDOMEN: Soft, nondistended, and nontender. No organomegaly or abnormal mass palpable. No CVA tenderness. EXTREMITIES: No peripheral edema, cyanosis, or deformity. NEURO: Cranial nerves intact. No lateralizing sign. The patient is awake and cooperative. Motor and sensory intact. SKIN: Clear. No skin eruptions or rash. LABORATORY DATA: Urinalysis was clear except for a few leukocytes. Nitrites negative. White count was 3900, 65 segs, 23 lymphs, 10 monos, 1 eo, 1 baso; hemoglobin is 11.5; hematocrit is 36.2; and platelet count is 201,000. CMS was normal except for an elevated glucose of 102, low anion gap of 9.9, elevated AST of 66, and elevated ALT of 96. Medical blood alcohol was less than 0.01. Acetaminophen level was less than 2.0. Salicylate level was less than 2.8. TSH was 1.84. Urine drug screen was negative. EMERGENCY DEPARTMENT COURSE: I did have Christo Stevenson, therapist come up interview the patient. Christo Stevenson did not think that she was suicidal and she did meet criteria for admission to [facility]. IMPRESSION: 1. Dementia. 2. Transient suicidal ideation and suicidal threats. PLAN: The patient transferred back to [facility]. Continue present medications and care. Follow up with personal physician as needed. PATIENT'S NAME: JAMES MELGAR [facility] AGE: 89 Y [address] ROOM: [place] [address] LOCATION: [facility] ADMIT DATE: 03/18/2017 ER/Outpatient Report DISCHARGE DATE: 03/18/2017 FAMILY PHYSICIAN: Rebecca Nassar MD ATTENDING PHYSICIAN: Jim Dyer JIM DYER MD SDS/modl /[id number] d: 03/19/17 0011 t: 03/19/17 0613, OUTPATIENT REPORT
[~2017-03-18 14:47] MED LIST changes: +CIPRO250 MG PO; +DULCOLAX10 MG R
[2017-03-18 15:49] LABS: BASOPHIL % 0.5 %; HEMATOCRIT 36.2 % (30.0-46.0); HEMOGLOBIN 11.5 g/dL (10.0-15.0); IMMATURE GRANULOCYTE % 0.3 %; LYMPHOCYTE # 0.9 K/uL (0.8-4.0); LYMPHOCYTE % 22.8 %; MCH 29.1 pg (27.0-34.0); MCHC 31.8 gm/dL (32.0-36.5); MCV 91.6 fl (83.0-98.0); MONOCYTE # 0.4 K/uL (0.0-1.0); MONOCYTE % 10.2 %; NEUTROPHIL # (ANC) 2.6 K/uL (1.8-7.8); NEUTROPHIL % 65.2 %; NRBC % 0 /100WBC (0-0.00); RBC 3.95 M/uL (3.00-5.00); RDW-CV 17.6 % (11.9-14.6); WBC 3.9 K/uL (4.0-11.0)
[2017-03-18 15:50] LABS: PLATELET COUNT 201 K/uL (150-450)
[2017-03-18 16:09] LABS: ALBUMIN 3.5 gm/dL (3.5-5.0); ALK PHOS 103 IU/L (33-138); ALT 96 IU/L (12-78); ANION GAP 9.9 (10.0-19.0); AST 66 IU/L (10-40); BLOOD UREA NITROGEN 16 mg/dL (6-24); CALCIUM 8.8 mg/dL (8.5-10.5); CHLORIDE 108 mMol/L (96-110); CO2 30 mMol/L (22-32); CREATININE 0.7 mg/dL (0.5-1.1); POTASSIUM 3.9 mMol/L (3.7-5.1); SODIUM 144 mMol/L (135-145); TOTAL BILIRUBIN 0.8 mg/dL (0.0-1.5); TOTAL PROTEIN 6.6 g/dL (6.0-8.4)
[2017-03-18 16:51] LABS: BILIRUBIN URINE NEGATIVE (NEGATIVE); BLOOD URINE NEGATIVE /UL (NEGATIVE); COLOR URINE YELLOW (YELLOW); GLUCOSE URINE NEGATIVE (NEGATIVE); KETONE URINE NEGATIVE (NEGATIVE); LEUKOCYTES URINE 25 /UL (NEGATIVE); NITRITE URINE NEGATIVE (NEGATIVE); PROTEIN URINE NEGATIVE (NEGATIVE); TURBIDITY URINE 3+ (CLEAR); UROBILINOGEN URINE NORMAL (NORMAL)
[2017-03-18 17:00] LABS: AMORPHOUS URINE 3+ (NEGATIVE); MUCUS URINE 1+ (NEGATIVE); RBC URINE NEGATIVE #/HPF (NEGATIVE); WBC URINE 0-2 #/HPF (NEGATIVE)
[2017-03-18 17:06] LABS: BACTERIA URINE NEGATIVE (NEGATIVE)
[2017-03-18 17:09] LABS: AMPHETAMINE NEGATIVE (NEGATIVE); BARBITURATE NEGATIVE (NEGATIVE); COCAINE NEGATIVE (NEGATIVE); OPIATES NEGATIVE (NEGATIVE)
== END 2017-03-18 17:45 ==
LOC: GMED 14:47
PROVIDERS: Emergency Medicine
PROC: 0T2BX0Z Change Drainage Device in Bladder, External Approach (ICD-10-PCS; principal; 2017-03-18)
DX: F03.90 Unspecified dementia, unspecified severity, without behavioral disturbance, psychotic disturbance, mood disturbance, and anxiety (principal); R45.851 Suicidal ideations; I10 Essential (primary) hypertension; I25.10 Atherosclerotic heart disease of native coronary artery without angina pectoris; M19.90 Unspecified osteoarthritis, unspecified site; Z88.2 Allergy status to sulfonamides; Z88.1 Allergy status to other antibiotic agents; Z85.038 Personal history of other malignant neoplasm of large intestine; Z90.89 Acquired absence of other organs; Z95.1 Presence of aortocoronary bypass graft; Z95.0 Presence of cardiac pacemaker; Z95.818 Presence of other cardiac implants and grafts; Z96.649 Presence of unspecified artificial hip joint; Z96.659 Presence of unspecified artificial knee joint; Z79.82 Long term (current) use of aspirin; Z79.899 Other long term (current) drug therapy
CPT/HCPCS: G0480